=== PATIENT | female | born 2000 | race Hispanic/Latino ===

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

== ENCOUNTER 2021-09-23 01:33 | Emergency (ER) | payer MEDICAID, OTHER, SELFPAY ==
[2021-09-23] MEDS ORDERED: Ibuprofen 200 MG TAB ONE (02:16)
[2021-09-23 04:18] LABS: SARS-CoV-2 NAA Rapid Test DETECTED (NotDetected)
== END 2021-09-23 05:20 | disposition home or self-care (01) ==
LOC: ERS 01:33
DX: U07.1 COVID-19 (principal)
CPT/HCPCS: 96360

== ENCOUNTER 2024-01-26 07:30 | Observation (INO) | payer OTHER, SELFPAY ==
[2024-01-26] MEDS ORDERED: Acetaminophen 500 MG TAB ONE (07:39)
[2024-01-26] MEDS ORDERED: cefTRIAXone (ROCEPHIN) 500 MG VIAL ONE (07:59)
[2024-01-26 08:08] LABS: #Basophils Less than 0.03 10x3/uL (0.0-0.2); #Eosinophils Less than 0.03 10x3/uL (0.0-0.7); %Basophils 0.2 % (0.0-1.0); %Monocytes 4.5 % (0.0-10.0); Hematocrit 36.4 % (36.0-47.0); Hemoglobin 12.6 g/dL (12.0-16.0); Mean Corpuscular HGB CONC 34.6 g/dL (32.0-36.0); Mean Corpuscular Hemoglobin 29.3 pg (27.0-31.0); Mean Corpuscular Volume 84.7 fL (78.0-98.0); Mean Platelet Volume 10.4 fL (7.4-10.4); Platelet Count 185 10x3/uL (130-400); RBC Distribution Width 12.3 % (11.5-14.5)
[2024-01-26 08:26] LABS: ALT (SGPT) 52 U/L (8-55); AST (SGOT) 38 U/L (5-34); Albumin 4.3 g/dL (3.5-5.0); Alkaline Phosphatase 120 U/L (40-110); Anion Gap 17 mmol/L (10-20); BUN (Urea Nitrogen) 12 mg/dL (7.0-18.7); Bilirubin, Total 0.4 mg/dL (0.2-1.2); Calc. Creatinine Clearance 0 mL/min (70-130); Calcium 8.6 mg/dL (7.8-10.44); Carbon Dioxide 19 mmol/L (22-29); Chloride 106 mmol/L (98-107); Estimated GFR 107; Globulin 3.4 g/dL (2.4-3.5); Glucose 127 mg/dL (70-105); Potassium 3.8 mmol/L (3.5-5.1); Protein, Total 7.7 g/dL (6.0-8.3); Sodium 138 mmol/L (136-145)
[2024-01-26 09:10] LABS: Bacteria/HPF 1+ HPF (None Seen); Bilirubin Negative (Negative); Blood, Urine Negative (Negative); CAUTI Indications for Culture Fever or rigors; Clarity Clear (Clear); Glucose, Urine (Dipstick) Normal (Negative); Ketone, Urine Negative (Negative); Leukocyte Negative Leu/uL (Negative); Nitrite Negative (Negative); Protein, Urine (Dipstick) 20 mg/dL (Neg-Trace); RBC/HPF 0-3 HPF (0-3); Specific Gravity, Urine 1.029 (1.002-1.036); Squamous Epithelial 0-3 HPF (0-3); WBC/HPF 0-3 HPF (0-3)
[2024-01-26 09:11] LABS: Urine Culture Reflex No No
[2024-01-26] MEDS ORDERED: Vancomycin 1 GM/200 ML (FROZEN) BAG ONE (09:37)
[2024-01-26 09:40] LABS: BHCG - Serum Negative (NEGATIVE); Pregs Control Background? CLEAR/WHITE (CLR/WHITE); Pregs Control Bar Appear? YES (CONTROL BAR)
[2024-01-26] MEDS ORDERED: Albuterol 2.5 MG (3 mL) NEB NEB PRN (10:00)
[2024-01-26] MEDS ORDERED: diphenhydrAMINE 50 MG/ML VIAL ONE (10:07)
[2024-01-26] MEDS ORDERED: Ondansetron ODT 4 MG TAB PO PRN (10:44)
[2024-01-26 12:56] VITALS: BMI 31.8
[2024-01-26] MEDS: Oseltamivir 75 MG CAP PO SCH ×2 (13:02→20:34)
[2024-01-26] MEDS: Acetaminophen 325 MG TAB PO PRN (13:08)
[2024-01-26] MEDS: Lactated Ringer's 1,000 ML IV SCH (14:35)
[2024-01-26] MEDS: Ibuprofen 600 MG TAB PO PRN (16:43)
[2024-01-26] MEDS: Acetaminophen 500 MG TAB PO SCH (16:44)
[2024-01-27] MEDS: cefTRIAXone\\ROCEPHIN 1 GM in Sodium Chloride 0.9% 100 ML IVPB SCH (08:08)
[2024-01-27 13:26] VITALS: BP 104/64; TEMP 98.6
[2024-01-31] MEDS ORDERED: FLU (Fluarix Triv) TS24-25(6MOS UP)/PF 45 MCG/0.5 ML Syringe IM ONE (09:00)
== END 2024-01-27 12:00 | disposition home or self-care (01) ==
LOC: ERS 07:30 → ERHOLD 09:53 → SURG A 12:42
PROVIDERS: ADMIT Family Medicine; ATTEND Internal Medicine
DX: A41.89 Other specified sepsis (principal); J10.1 Influenza due to other identified influenza virus with other respiratory manifestations; Z87.59 Personal history of other complications of pregnancy, childbirth and the puerperium; Z90.49 Acquired absence of other specified parts of digestive tract; Z88.1 Allergy status to other antibiotic agents; Z79.1 Long term (current) use of non-steroidal anti-inflammatories (NSAID); Z79.2 Long term (current) use of antibiotics; Z79.899 Other long term (current) drug therapy
CPT/HCPCS: 36415; 71045; 80053; 81001; 83605; 84703; 85025; 87040; 87428; 94760; 96365; 96375; 96376; G0378; J0696; J1200; J3370